=== PATIENT | female | born 1950 | race Hispanic/Latino ===

== ENCOUNTER 2019-08-08 21:09 | Emergency (ER) | payer SELFPAY ==
[~2019-08-08] VITALS: Ht 149.9 cm; Wt 72.1 kg
== END 2019-08-08 22:30 | disposition home or self-care (01) ==
LOC: FSED 21:09
DX: R50.9 Fever, unspecified (principal); R05 Cough; J11.1 Influenza due to unidentified influenza virus with other respiratory manifestations
CPT/HCPCS: 83518; 87400; 93005; 99283

== ENCOUNTER 2021-03-15 18:23 | Emergency (ER) | payer SELFPAY ==
[~2021-03-15] VITALS: Ht 149.9 cm; Wt 67.6 kg
[2021-03-15] MEDS ORDERED: AMLODIPINE BESYL5 MG PO (19:15)
== END 2021-03-15 19:26 | disposition home or self-care (01) ==
LOC: ER 19:20
DX: I10 Essential (primary) hypertension (principal)
CPT/HCPCS: 99282

== ENCOUNTER 2025-04-30 17:29 | Emergency (ER) | payer SELFPAY ==
[~2025-04-30] VITALS: Ht 149.9 cm; Wt 67.1 kg
[~2025-04-30 17:29] MED LIST: AMLODIPINE BESYL5 MG PO
[2025-04-30] MEDS ORDERED: CLONIDINE HCL 0.1 MG TAB ONE (17:59)
[2025-04-30] MEDS: ACETAMINOPHEN 325 MG TAB PO ONE (18:03)
[2025-04-30 18:04] VITALS: BP 220/98
[2025-04-30] MEDS: CLONIDINE HCL 0.1 MG TAB PO ONE (18:04)
[2025-04-30] MEDS ORDERED: TYLENOL325 MG PO (18:38)
[2025-04-30] MEDS ORDERED: AMLODIPINE BESY10 MG PO (18:38)
[2025-04-30] MEDS ORDERED: LOSARTAN POTASS25 MG PO (18:38)
[2025-04-30 19:03] VITALS: PULSE 70; RESP 16; TEMP 98; O2SAT 99
== END 2025-04-30 19:03 | disposition home or self-care (01) ==
LOC: FSED 17:36
DX: S93.492A Sprain of other ligament of left ankle, initial encounter (principal); X50.1XXA Overexertion from prolonged static or awkward postures, initial encounter; Y93.01 Activity, walking, marching and hiking; Y92.89 Other specified places as the place of occurrence of the external cause; I10 Essential (primary) hypertension; Z91.148 Patient's other noncompliance with medication regimen for other reason
CPT/HCPCS: 99283